=== PATIENT | female | born 1955 | race Caucasian/White ===

== ENCOUNTER 2025-03-06 03:34 | Emergency (ER) | payer OTHER, BC ==
[2025-03-06 03:46] VITALS: TEMP 98; BMI 26.6
[2025-03-06] MEDS ORDERED: ACETAMINOPHEN INJECTION 100 ML ONE (04:14)
[2025-03-06] MEDS: ACETAMINOPHEN 1000 MG/100 ML BAG IVPB ONE (04:41)
[2025-03-06 04:49] LABS: EOSINOPHIL % 2.3 % (0.7-5.8); EOSINOPHILS # 0.29 x10^3/uL (0.04-0.36); MEAN CELL VOLUME 90.9 fl (79.4-94.8); MEAN PLT VOLUME 11.2 fl (9.4-12.3); MONOCYTE # 0.66 x10^3/uL (0.24-0.86); RDW 13.2 % (12.4-16.4)
[2025-03-06 04:55] LABS: ABSOLUTE IMMATURE GRANULOCYTES 0.06 x10^3/uL (0.0-0.031); BASOPHILS # 0.08 x10^3/uL (0.01-0.08); MCHC 33.3 g/dl (32.2-35.5); MONOCYTE % 5.2 % (4.7-12.5)
[2025-03-06 05:05] LABS: GLUCOSE,RANDOM 159.0 mg/dL (74-106); TOT PROT 8.1 g/dl (6.4-8.2)
[2025-03-06 05:06] LABS: CO2 29.0 mmol/L (21-32)
[2025-03-06 05:08] LABS: ALK PHOS 96.0 U/L (40-150)
[2025-03-06 05:10] LABS: SGOT/AST 38.0 U/L (5-34); SGPT/ALT 43.0 U/L (0-55)
[2025-03-06 05:11] LABS: CREATININE 0.8 mg/dL (0.55-1.3)
[2025-03-06] MEDS ORDERED: LIDOCAINE HCL 1%, 10 MG/ML (20ML VIAL) ONE (05:19)
[2025-03-06 07:15] LABS: HIV INTERPRETATION NEGATIVE (NEGATIVE)
[2025-03-06 07:17] LABS: HCV DIAGNOSTIC IN-HOUSE W/RFLX NON-REACTIVE (NONREACTIVE)
[2025-03-06 08:09] VITALS: BP 107/66; PULSE 84; RESP 16
== END 2025-03-06 08:10 | disposition home or self-care (01) ==
LOC: JER 03:34
PROC: 0HQ0XZZ Repair Scalp Skin, External Approach (ICD-10-PCS; principal; 2025-03-06)
PROC: 3E033NZ Introduction of Analgesics, Hypnotics, Sedatives into Peripheral Vein, Percutaneous Approach (ICD-10-PCS; 2025-03-06)
DX: S01.01XA Laceration without foreign body of scalp, initial encounter (principal); R55 Syncope and collapse; R42 Dizziness and giddiness; W18.30XA Fall on same level, unspecified, initial encounter; Y92.002 Bathroom of unspecified non-institutional (private) residence as the place of occurrence of the external cause
CPT/HCPCS: 36415; 70450-TC; 71045-TC-FY; 72125-TC; 80053; 83735; 84484; 85025; 86803; 87389; 93005; 93010; 99285-25